=== PATIENT | male | born 1995 | race Caucasian/White ===

== ENCOUNTER 2020-07-19 22:02 | Emergency (ER) | payer OTHER ==
[~2020-07-19] VITALS: Ht 188 cm; Wt 81.7 kg
[2020-07-19 23:08] LABS: ABSOLUTE NEUTROPHILS 4.1 thou/uL (1.4-8.2); BASOPHILS 0.4 % (0.0-2.0); EOSINOPHILS 1.5 % (0.0-3.0); HEMATOCRIT 46.4 % (42.0-52.0); HEMOGLOBIN 15.6 gm/dL (14.0-18.0); LYMPHOCYTES 23.5 % (24.0-44.0); MCH 30.7 pg (26.0-34.0); MCHC 33.5 g/dL (28.0-37.0); MCV 91.7 fL (80.0-100.0); PLATELET COUNT 235 thou/uL (150-400); POLYS 65.6 % (36.0-66.0); RBC 5.06 mil/uL (4.50-6.00); RDW 12.8 % (10.5-14.5); WBC 6.3 thou/uL (4.0-11.0)
[2020-07-19 23:21] LABS: URINE BILIRUBIN NEGATIVE (Negative); URINE BLOOD NEGATIVE (Negative); URINE CLARITY CLEAR; URINE COLOR YELLOW; URINE GLUCOSE-RANDOM* NEGATIVE (Negative); URINE KETONES NEGATIVE (Negative); URINE LEUKOCYTES-REFLEX NEGATIVE (Negative); URINE NITRITE-REFLEX NEGATIVE (Negative); URINE PROTEIN (DIPSTICK) NEGATIVE (Negative); URINE SPECIFIC GRAVITY 1.025 (1.005-1.035); URINE UROBILINOGEN >= 8.0 E.U./dl (0.2-1.0)
[2020-07-19 23:29] LABS: AMP/METHAMP Negative (Negative); ANION GAP 10 mmol/L (7-16); BARBITURATES Negative (Negative); BENZODIAZEPINES Negative (Negative); BUN 27 mg/dL (7-18); CALCIUM 8.7 mg/dL (8.5-10.1); CHLORIDE 104 mmol/L (98-107); CO2 27 mmol/L (21-32); COCAINE Negative (Negative); CREATININE 1.7 mg/dL (0.7-1.3); GLUCOSE 101 mg/dL (74-106); METHADONE Negative (Negative); OPIATES Negative (Negative); PCP Negative (Negative); POTASSIUM 3.6 mmol/L (3.5-5.1); SODIUM 141 mmol/L (136-145)
[2020-07-19 23:32] LABS: ALBUMIN 3.8 g/dL (3.4-5.0); SALICYLATE < 2.8 mg/dL (2.8-20.0); SGOT 16 U/L (15-37); SGPT 19 U/L (30-65); TOTAL BILIRUBIN 0.5 mg/dL (0.2-1.0); TOTAL PROTEIN 6.7 g/dL (6.4-8.2)
[2020-07-20 00:27] VITALS: BP 126/87
== END 2020-07-20 00:29 | disposition home or self-care (01) ==
LOC: ER 22:02
PROVIDERS: Emergency Medicine
DX: F10.10 Alcohol abuse, uncomplicated (principal); Z20.828 Contact with and (suspected) exposure to other viral communicable diseases; Y90.1 Blood alcohol level of 20-39 mg/100 ml